=== PATIENT | female | born 1970 | race Caucasian/White ===

== ENCOUNTER 2017-01-07 22:14 | Emergency (ER) | payer MEDICAID, OTHER, SELFPAY ==
[~2017-01-07 22:14] MED LIST: /ADVA50050; /ADVA50050 IN; /ESCI20TA; /MOXI40TA; /MOXI40TA OR; /TIOT18INH; /ZOLP6ER OR; ACET65TA; ADVAIR; ALBUTEROL INH; ALBUTEROL INHL INH; ALLE25CA; AMBI10TA; AMBI10TA OR; AMBI5TAB; ATARAX OR; ATIV0.5T OR; BUPRPOW2; CELE20TA OR; COMBIVENT; EFFE150C; EFFE75CA75; HYDROCORTISONE0.5 % EX; IPRATROPIUM; KLON1TAB OR; LITH300T2 OR; MILKSUS; NEUR400C OR; NEUR600T; NICO21DI4; NICO21DI4 TD; PRED20TA; PREDNISONE PO; PROV90AE; RISPERDOL PO; SENN8.6T14; SUBOXONE PO; Suboxone; WELLBUTRIN PO; XANA0.5T OR; XOPE1.252
[2017-01-07] MEDS ORDERED: CLINDAMYCIN 150 MG CAP As Ordered ONE (22:41)
[2017-01-07] MEDS ORDERED: NORCO 5/325MG TABLET (BULK) As Ordered ONE (22:42)
--- NOTE | 2017-01-07 22:54 | EDDOCDS ---
Nurse's Notes [facility] Name: Melissa Patel Age: 46 yrs Sex: Female : 1970 Arrival Date: 01/07/2017 Time: 22:14 Bed 13 Private MD: NO PRIMARY PHYSICIAN, . Diagnosis: Disturbances in tooth formation-broken tooth Presentation: 01/07 22:18 Presenting complaint: Patient states: she broke a tooth 2 weeks ago. States pain has nn1 spread to right ear and right side of face. Patient has not seen a dentist. Adult Sepsis Screening: The patient does not have new or worsening altered mentation. Patient's respiratory rate is less than 22. Systolic blood pressure is greater than 100. Patient has a qSOFA score of 0- Negative Sepsis Screen. Suicide/Homicide risk assessment- the patient denies having any suicidal and/or homicidal ideations and does not present with any other emotional, behavioral or mental health complaints. Status: Patient is not a inbound customer service representative or dependent. Transition of care: patient was not received from another setting of care. 22:18 Acuity: ANDREI Level 4 nn1 22:18 Method Of Arrival: Walkin/Carried/Asstd nn1 Triage Assessment: 22:21 General: Appears in no apparent distress, comfortable. Pain: Location: tongue and lower nn1 right second bicuspid Pain currently is 6 out of 10 on a pain scale. HIV screening NA for this visit Offered previously. Neurological: Level of Consciousness is awake, alert, obeys commands, Oriented to person, place, time. EENT: Oral mucosa is moist. Poor dentition noted. Respiratory: Airway is patent Respiratory effort is even, unlabored, Respiratory pattern is regular, symmetrical. ON LINE CSR: 22:52 LMP N/A - cf2 Historical: - Allergies: No known drug Allergies; - Home Meds: 1. 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 No barriers to communication noted, The patient speaks fluent Uruguayan, Speaks appropriately for age. - Family history: Not pertinent. - : The pt / caregiver states he / she is not on anticoagulants. Home medication list is obtained from the patient. - Exposure Risk Screening:: None identified. Screenin:51 Screening information is obtained from the patient. Fall risk: No risks identified. cf2 Assistance ADL's: requires no assistance with activities of daily living. Abuse/DV Screen: The patient / caregiver reports he/she is: not in a situation that causes fear, pain or injury. Nutritional screening: No deficits noted. Advance Directives: Further advance directive information is declined. home support is adequate. Assessment: 22:51 Pain: Location: mouth. cf2 Vital Signs: 22:15 BP 153 / 85; Pulse 72; Resp 18 S; Temp 97.4(O); Pulse Ox 99% on R/A; Weight 72.57 kg gr2 (R); Height 5 ft. 5 in. (165.10 cm) (R); Pain 6/10; 22:15 Body Mass Index 26.63 (72.57 kg, 165.10 cm) gr2 Vitals: 22:15 Log In Time: January 07, 2017 at 22:15. gr2 ED Course: 22:15 Patient visited by Sushil Scherer. gr2 22:15 NO PRIMARY PHYSICIAN, . is Private Physician. gr2 22:15 Patient moved to Waiting gr2 22:16 Patient visited by Sushil Scherer. gr2 22:16 Patient moved to Pre RCE gr2 22:19 Triage Initiated nn1 22:30 Patient moved to 13 ttb 22:31 Will Choi FNP is PHCP. ke 22:31 Patient visited by Will Choi FNP. ke 22:31 Patient visited by Will Choi FNP. ke 22:36 Latasha Guillen RN is Primary Nurse. cf2 22:42 Your, Dentist is Referral Physician. ke 22:51 Latasha Guillen,GERMAINE is Primary Nurse. cf2 22:51 Patient visited by aLtasha Guillen RN. cf2 22:51 The patient / caregiver is instructed regarding the plan of care and ED course. Patient cf2 has correct armband on for positive identification. Placed in gown. Bed in low position. Call light in reach. Side rails up X 1. Side rails up X2. 22:51 No IV's were initiated during this patient's visit. No procedures done that require cf2 assistance. 22:53 Dilshad Allen MD is Attending Physician. cf2 Order Results: There are currently no results for this order. Outcome: 22:43 Discharge ordered by Provider. ke 22:51 Discharge Assessment: Patient awake, alert and oriented x 3. No cognitive and/or cf2 functional deficits noted. Patient verbalized understanding of disposition instructions. Patient awake and alert. Oriented to person, place and time. patient administered narcotics - yes. Pt provided with safe discharge. The following High Risk Discharge criteria are identified: None. Condition: good Condition: stable Condition: improved. No special radiology studies were completed. Property :Personal belongings accompany Pt. 22:53 Patient left the ED. cf2 Signatures: Will Choi, RELATIONSHIP MANAGER Jayashree Allen RN RN ttb Sushil Scherer 2 Liana LandersRN RN nn1 Latasha GuillenRN RN cf2 MTDD
--- NOTE | 2017-01-07 22:54 | EDDOCDS ---
Physician Documentation [facility] Name: Melissa Patel Age: 46 yrs Sex: Female : 1970 Arrival Date: 01/07/2017 Time: 22:14 Bed 13 Private MD: NO PRIMARY PHYSICIAN, . Disposition: 01/07/17 22:43 Discharged to Home/Self Care. Impression: Disturbances in tooth formation - broken tooth. - Condition is Stable. - Discharge Instructions: Dental Pain. - Prescriptions for Clindamycin HCl 300 mg Oral Capsule - take 1 capsule by ORAL route every 6 hours; 40 capsule. [place] 5- 325 mg Oral Tablet - take 1 tablet by ORAL route every 6 hours As needed MDD: 4 tabs; 20 tablet. - Medication Reconciliation, Local Pharmacy Hours form. - Follow up: Your, Dentist; When: As soon as possible; Reason: Further diagnostic work-up, Continuance of care. - Problem is an ongoing problem. - Symptoms are unchanged. Historical: - Allergies: No known drug Allergies; - Home Meds: 1. 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 No barriers to communication noted, The patient speaks fluent Romanian, Speaks appropriately for age. - Family history: Not pertinent. - : The pt / caregiver states he / she is not on anticoagulants. Home medication list is obtained from the patient. - Exposure Risk Screening:: None identified. JOB ANALYSIS MANAGER: 01/07 22:52 LMP N/A - cf2 Vital Signs: 22:15 BP 153 / 85; Pulse 72; Resp 18 S; Temp 97.4(O); Pulse Ox 99% on R/A; Weight 72.57 kg / gr2 159.99 lbs (R); Height 5 ft. 5 in. (165.10 cm) (R); Pain 6/10; 22:15 Body Mass Index 26.63 (72.57 kg, 165.10 cm) gr2 MDM: 22:38 Clindamycin 300 mg PO once ordered. ke 22:38 HYDROcodone-acetaminophen 4 pack- 5 mg-325 mg 1 packets PO Per package directions; ke Dispense with patient. 1 po q4h prn for pain ordered. Signatures: Will Choi, WOMENS HEALTH NURSE PRACTITIONER WOMENS HEALTH NURSE PRACTITIONER Liana Avalos,RN RN nn1 Latasha GuillenRN RN cf2 MTDD
--- NOTE | 2017-01-09 23:53 | EDDOCDS ---
Physician Documentation [facility] Name: Melissa Patel Age: 46 yrs Sex: Female : 1970 Arrival Date: 01/07/2017 Time: 22:14 Bed 13 Private MD: NO PRIMARY PHYSICIAN, . Disposition: 01/07/17 22:43 Discharged to Home/Self Care. Impression: Disturbances in tooth formation - broken tooth. - Condition is Stable. - Discharge Instructions: Dental Pain. - Prescriptions for Clindamycin HCl 300 mg Oral Capsule - take 1 capsule by ORAL route every 6 hours; 40 capsule. [place] 5- 325 mg Oral Tablet - take 1 tablet by ORAL route every 6 hours As needed MDD: 4 tabs; 20 tablet. - Medication Reconciliation, Local Pharmacy Hours form. - Follow up: Your, Dentist; When: As soon as possible; Reason: Further diagnostic work-up, Continuance of care. - Problem is an ongoing problem. - Symptoms are unchanged. Historical: - Allergies: No known drug Allergies; - Home Meds: 1. 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 No barriers to communication noted, The patient speaks fluent Kinyarwanda, Speaks appropriately for age. - Family history: Not pertinent. - : The pt / caregiver states he / she is not on anticoagulants. Home medication list is obtained from the patient. - Exposure Risk Screening:: None identified. IN FLIGHT TECHNICIAN: 01/07 22:52 LMP N/A - cf2 Vital Signs: 22:15 BP 153 / 85; Pulse 72; Resp 18 S; Temp 97.4(O); Pulse Ox 99% on R/A; Weight 72.57 kg / gr2 159.99 lbs (R); Height 5 ft. 5 in. (165.10 cm) (R); Pain 6/10; 22:15 Body Mass Index 26.63 (72.57 kg, 165.10 cm) gr2 MDM: 22:38 Clindamycin 300 mg PO once ordered. ke 22:38 HYDROcodone-acetaminophen 4 pack- 5 mg-325 mg 1 packets PO Per package directions; ke Dispense with patient. 1 po q4h prn for pain ordered. 23:02 [facility] Payment Agreement was scanned into [employer] and attached to record. [facility] : Financial registration complete. [facility] 01/08 10:11 T-Sheet-- Draft Copy was scanned into [employer] and attached to record. gb Signatures: Eloisa Mckeon, Reg Reg gb Will Choi, DISTRIBUTOR SALES CONSULTANT DISTRIBUTOR SALES CONSULTANT Liana Avalos RN RN nn1 Monica Whittington [facility] Latasha GuillenRN RN cf2 The chart was reviewed and I authenticate all verbal orders and agree with the evaluation and treatment provided.Attachments: 01/07 23:02 [facility] Payment Agreement [facility] 01/08 10:11 T-Sheet-- Draft Copy gb Chart Complete MTDD
--- NOTE | 2017-01-09 23:53 | EDDOCDS ---
Physician Documentation [facility] Name: Melissa Patel Age: 46 yrs Sex: Female : 1970 Arrival Date: 01/07/2017 Time: 22:14 Bed 13 Private MD: NO PRIMARY PHYSICIAN, . Disposition: 01/07/17 22:43 Discharged to Home/Self Care. Impression: Disturbances in tooth formation - broken tooth. - Condition is Stable. - Discharge Instructions: Dental Pain. - Prescriptions for Clindamycin HCl 300 mg Oral Capsule - take 1 capsule by ORAL route every 6 hours; 40 capsule. [place] 5- 325 mg Oral Tablet - take 1 tablet by ORAL route every 6 hours As needed MDD: 4 tabs; 20 tablet. - Medication Reconciliation, Local Pharmacy Hours form. - Follow up: Your, Dentist; When: As soon as possible; Reason: Further diagnostic work-up, Continuance of care. - Problem is an ongoing problem. - Symptoms are unchanged. Historical: - Allergies: No known drug Allergies; - Home Meds: 1. 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 No barriers to communication noted, The patient speaks fluent Kinyarwanda, Speaks appropriately for age. - Family history: Not pertinent. - : The pt / caregiver states he / she is not on anticoagulants. Home medication list is obtained from the patient. - Exposure Risk Screening:: None identified. DECK SUPERVISOR: 01/07 22:52 LMP N/A - cf2 Vital Signs: 22:15 BP 153 / 85; Pulse 72; Resp 18 S; Temp 97.4(O); Pulse Ox 99% on R/A; Weight 72.57 kg / gr2 159.99 lbs (R); Height 5 ft. 5 in. (165.10 cm) (R); Pain 6/10; 22:15 Body Mass Index 26.63 (72.57 kg, 165.10 cm) gr2 MDM: 22:38 Clindamycin 300 mg PO once ordered. ke 22:38 HYDROcodone-acetaminophen 4 pack- 5 mg-325 mg 1 packets PO Per package directions; ke Dispense with patient. 1 po q4h prn for pain ordered. 23:02 [facility] Payment Agreement was scanned into [employer] and attached to record. [facility] : Financial registration complete. [facility] 01/08 10:11 T-Sheet-- Draft Copy was scanned into [employer] and attached to record. gb Signatures: Eloisa Mckeon, Reg Reg gb Will Choi, POWERTRAIN CONTROL SYSTEMS ENGINEER POWERTRAIN CONTROL SYSTEMS ENGINEER Liana Avalos RN RN nn1 Monica Whittington [facility] Latasha GuillenRN RN cf2 The chart was reviewed and I authenticate all verbal orders and agree with the evaluation and treatment provided.Attachments: 01/07 23:02 [facility] Payment Agreement [facility] 01/08 10:11 T-Sheet-- Draft Copy gb Chart Complete MTDD
--- NOTE | 2017-01-09 23:53 | EDDOCDS ---
Nurse's Notes [facility] Name: Melissa Patel Age: 46 yrs Sex: Female : 1970 Arrival Date: 01/07/2017 Time: 22:14 Bed 13 Private MD: NO PRIMARY PHYSICIAN, . Diagnosis: Disturbances in tooth formation-broken tooth Presentation: 01/07 22:18 Presenting complaint: Patient states: she broke a tooth 2 weeks ago. States pain has nn1 spread to right ear and right side of face. Patient has not seen a dentist. Adult Sepsis Screening: The patient does not have new or worsening altered mentation. Patient's respiratory rate is less than 22. Systolic blood pressure is greater than 100. Patient has a qSOFA score of 0- Negative Sepsis Screen. Suicide/Homicide risk assessment- the patient denies having any suicidal and/or homicidal ideations and does not present with any other emotional, behavioral or mental health complaints. Status: Patient is not a servicenow administrator or dependent. Transition of care: patient was not received from another setting of care. 22:18 Acuity: ANDREI Level 4 nn1 22:18 Method Of Arrival: Walkin/Carried/Asstd nn1 Triage Assessment: 22:21 General: Appears in no apparent distress, comfortable. Pain: Location: tongue and lower nn1 right second bicuspid Pain currently is 6 out of 10 on a pain scale. HIV screening NA for this visit Offered previously. Neurological: Level of Consciousness is awake, alert, obeys commands, Oriented to person, place, time. EENT: Oral mucosa is moist. Poor dentition noted. Respiratory: Airway is patent Respiratory effort is even, unlabored, Respiratory pattern is regular, symmetrical. BUSINESS CONTROL SPECIALIST: 22:52 LMP N/A - cf2 Historical: - Allergies: No known drug Allergies; - Home Meds: 1. 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 No barriers to communication noted, The patient speaks fluent Japanese, Speaks appropriately for age. - Family history: Not pertinent. - : The pt / caregiver states he / she is not on anticoagulants. Home medication list is obtained from the patient. - Exposure Risk Screening:: None identified. Screenin:51 Screening information is obtained from the patient. Fall risk: No risks identified. cf2 Assistance ADL's: requires no assistance with activities of daily living. Abuse/DV Screen: The patient / caregiver reports he/she is: not in a situation that causes fear, pain or injury. Nutritional screening: No deficits noted. Advance Directives: Further advance directive information is declined. home support is adequate. Assessment: 22:51 Pain: Location: mouth. cf2 Vital Signs: 22:15 BP 153 / 85; Pulse 72; Resp 18 S; Temp 97.4(O); Pulse Ox 99% on R/A; Weight 72.57 kg gr2 (R); Height 5 ft. 5 in. (165.10 cm) (R); Pain 6/10; 22:15 Body Mass Index 26.63 (72.57 kg, 165.10 cm) gr2 Vitals: 22:15 Log In Time: January 07, 2017 at 22:15. gr2 ED Course: 22:15 Patient visited by Sushil Scherer. gr2 22:15 NO PRIMARY PHYSICIAN, . is Private Physician. gr2 22:15 Patient moved to Waiting gr2 22:16 Patient visited by Sushil Scherer. gr2 22:16 Patient moved to Pre RCE gr2 22:19 Triage Initiated nn1 22:30 Patient moved to 13 ttb 22:31 Will Choi FNP is PHCP. ke 22:31 Patient visited by Will Choi FNP. ke 22:31 Patient visited by Will Choi FNP. ke 22:36 Latasha Guillen RN is Primary Nurse. cf2 22:42 Your, Dentist is Referral Physician. ke 22:51 Latasha Guillen,GERMAINE is Primary Nurse. cf2 22:51 Patient visited by Latasha Guillen RN. cf2 22:51 The patient / caregiver is instructed regarding the plan of care and ED course. Patient cf2 has correct armband on for positive identification. Placed in gown. Bed in low position. Call light in reach. Side rails up X 1. Side rails up X2. 22:51 No IV's were initiated during this patient's visit. No procedures done that require cf2 assistance. 22:53 Dilshad Allen MD is Attending Physician. cf2 23:02 [facility] Payment Agreement was scanned into [email or web address] and attached to record. [facility] 01/08 10:11 T-Sheet-- Draft Copy was scanned into [email or web address] and attached to record. gb Order Results: There are currently no results for this order. Outcome: 01/07 22:43 Discharge ordered by Provider. ke 22:51 Discharge Assessment: Patient awake, alert and oriented x 3. No cognitive and/or cf2 functional deficits noted. Patient verbalized understanding of disposition instructions. Patient awake and alert. Oriented to person, place and time. patient administered narcotics - yes. Pt provided with safe discharge. The following High Risk Discharge criteria are identified: None. Condition: good Condition: stable Condition: improved. No special radiology studies were completed. Property :Personal belongings accompany Pt. 22:53 Patient left the ED. cf2 Signatures: Eloisa Mckeon, Reg Reg gb Will Choi, LEAD PASTOR LEAD PASTOR Jayashree Sullivan RN RN ttb Sushil Scherer gr2 Liana Landers,RN RN nn1 Monica Whittington b Latasha Guillen,RN RN cf2 Chart Complete POLO
== END 2017-01-07 22:53 | disposition home or self-care (01) ==
LOC: M ED 22:14
DX: K02.9 Dental caries, unspecified (principal); J45.909 Unspecified asthma, uncomplicated; B19.20 Unspecified viral hepatitis C without hepatic coma; F17.210 Nicotine dependence, cigarettes, uncomplicated

== ENCOUNTER 2017-06-15 17:25 | Emergency (ER) | payer MEDICAID, SELFPAY ==
[~2017-06-15] VITALS: Ht 165.1 cm; Wt 82.8 kg
[2017-06-15 17:25] VITALS: BP 133/74
[2017-06-15] MEDS ORDERED: CYCL5TAB PO (18:52)
[2017-06-15] MEDS ORDERED: NAPR500T PO (18:52)
[2017-06-15] MEDS ORDERED: CYCLOBENZAPRINE 10 MG TAB PO ONE (19:00)
[2017-06-15] MEDS ORDERED: NAPROXEN 250 MG TAB PO ONE (19:00)
[2017-06-15] MEDS ORDERED: CYCLOBENZAPRINE 5MG TABLET PO ONE (19:00)
--- NOTE | 2017-06-15 19:09 | ECGEPIP ---
Stationary ECG Study [facility] - ED Test Date: 2017-06-15 Pat Name: GERMÁN WRIGHT Department: Room: - Gender: F Press Secretary: ct : 1970 Requested By: JULIO CESAR Fritz PA-C Order Number: [id number] Reading MD: Whitney Lopez Measurements Intervals [place] Rate: 63 P: 80 NH: 143 QRS: 56 QRSD: 82 T: 63 QT: 425 QTc: 436 Interpretive Statements SINUS RHYTHM POSSIBLE RIGHT ATRIAL ENLARGEMENT POSSIBLE LEFT ATRIAL ENLARGEMENT DECREASED RATE/NH 12/23/11 Electronically Signed On 06-15-2017 19:09:15 EDT by Whitney Lopez
== END 2017-06-15 19:05 | disposition home or self-care (01) ==
LOC: M ED 17:25
DX: S46.812A Strain of other muscles, fascia and tendons at shoulder and upper arm level, left arm, initial encounter (principal); X58.XXXA Exposure to other specified factors, initial encounter; Y92.9 Unspecified place or not applicable; Y93.9 Activity, unspecified; Y99.8 Other external cause status; F41.9 Anxiety disorder, unspecified; F32.9 Major depressive disorder, single episode, unspecified; J45.909 Unspecified asthma, uncomplicated; F11.21 Opioid dependence, in remission

== ENCOUNTER 2017-06-23 23:47 | Emergency (ER) | payer MEDICAID, SELFPAY ==
[~2017-06-23] VITALS: Ht 165.1 cm; Wt 82.7 kg
[~2017-06-23 23:47] MED LIST changes: +CYCL5TAB PO; +NAPR500T PO
[2017-06-24] MEDS ORDERED: KETOROLAC 60 MG/2 ML VIAL (J1885) IM ONE (01:15)
[2017-06-24] MEDS ORDERED: KETOROLAC 30 MG/ML VIAL (J1885) As Ordered ONE (01:15)
--- NOTE | 2017-06-24 01:50 | REP ---
Clinical: Pain . Technique: Internal rotation, external rotation, and Y view. Findings: No acute fracture or dislocation. The acromioclavicular and glenohumeral joints are intact. No periarticular calcifications or degenerative changes are appreciated. Sub acromial space is normal. Surrounding soft tissues are unremarkable. Impression: Normal age-appropriate left shoulder radiographs. Signed by Juan Francisco Smith MD 06/24/2017 01:41 A
[2017-06-24] MEDS ORDERED: KETO10TAB PO (02:29)
[2017-06-24 02:55] VITALS: BP 120/78
== END 2017-06-24 03:01 | disposition home or self-care (01) ==
LOC: M ED 23:47
DX: M75.102 Unspecified rotator cuff tear or rupture of left shoulder, not specified as traumatic (principal); J45.909 Unspecified asthma, uncomplicated; F11.21 Opioid dependence, in remission; F17.200 Nicotine dependence, unspecified, uncomplicated
CPT/HCPCS: 73030; 96372; 99283; J1885

== ENCOUNTER 2017-12-08 18:15 | Emergency (ER) | payer OTHER, SELFPAY ==
[2017-12-08] MEDS: NS 1,000 ML IV (20:30)
[2017-12-08 20:40] LABS: KETONE, URINE AUTO RFX NEGATIVE (NEGATIVE); LEUKOCYTE ESTERASE UR AUTO RFX NEGATIVE (NEGATIVE); NITRITE, URINE AUTO RFX NEGATIVE (NEGATIVE); RBC, URINE AUTO RFX 0 /HPF (0-3); SQUAM EPITHELIAL CELL UR AURFX 0 /HPF (0-6); WBC, URINE AUTO RFX 0 /HPF (0-3)
[2017-12-08 21:40] LABS: BASO # 0.1 10^3/uL (0.0-0.2); BASO % 0.8 % (0.0-1.0); EOS # 0.2 10^3/uL (0.0-0.50); EOS % 2.2 % (0.0-3.0); HEMATOCRIT 44.2 % (36.0-47.0); IMMATURE GRANULOCYTE % 0.4 % (0-0); LYMPH # 1.9 10^3/uL (1.5-4.5); LYMPH % 26.1 % (24.0-44.0); MEAN CORPUSCULAR HEMOGLOBIN 29.7 pg (27.0-33.0); MEAN CORPUSCULAR HGB CONC 33.9 g/dl (32.0-36.5); MEAN CORPUSCULAR VOLUME 87.5 fl (80.0-96.0); MONO # 0.6 10^3/uL (0.0-0.8); MONO % 7.8 % (0.0-5.0); NEUTROPHILS # 4.6 10^3/uL (1.8-7.7); NEUTROPHILS % 62.7 % (36.0-66.0); PLATELET COUNT, AUTOMATED 151 10^3/uL (150-450); RED BLOOD COUNT 5.05 10^6/uL (4.00-5.40); WHITE BLOOD COUNT 7.3 10^3/uL (4.0-10.0)
[2017-12-08 21:55] LABS: INR 0.94; PROTHROMBIN TIME 12.7 SECONDS (12.4-14.5)
[2017-12-08] MEDS: KETOROLAC 30 MG/ML VIAL (J1885) IV (23:29)
[2017-12-08] MEDS: PANTOPRAZOLE 40MG INJ (PROTONIX) (C9113) IV (23:29)
[2017-12-08] MEDS: ONDANSETRON 4MG/2ML VIAL (J2405) IV (23:29)
[2017-12-09 00:12] LABS: ALBUMIN 3.6 GM/DL (3.2-5.2); ALKALINE PHOSPHATASE 58 U/L (45-117); ALT/SGPT 37 U/L (12-78); ANION GAP 8 MEQ/L (8-16); AST/SGOT 20 U/L (7-37); BILIRUBIN,DIRECT 0.2 MG/DL (0.0-0.2); BILIRUBIN,TOTAL 0.5 MG/DL (0.2-1.0); BLOOD UREA NITROGEN 9 MG/DL (7-18); CALCIUM LEVEL 8.4 MG/DL (8.5-10.1); CARBON DIOXIDE LEVEL 24 MEQ/L (21-32); CHLORIDE LEVEL 108 MEQ/L (98-107); CREATININE FOR GFR 0.52 MG/DL (0.55-1.02); GLOMERULAR FILTRATION RATE > 60.0 (>58); GLUCOSE, FASTING 82 MG/DL (70-105); LIPASE 94 U/L (73-393); POTASSIUM SERUM 3.8 MEQ/L (3.5-5.1); SODIUM LEVEL 140 MEQ/L (136-145); TOTAL PROTEIN 7.2 GM/DL (6.4-8.2)
[2017-12-09] MEDS ORDERED: ISOVUE-370 76% 100ML VIAL (Q9967) As Ordered (00:13)
== END 2017-12-09 02:09 | disposition home or self-care (01) ==
LOC: M ED 12-09 02:09
DX: K62.5 Hemorrhage of anus and rectum (principal); J44.9 Chronic obstructive pulmonary disease, unspecified; B19.9 Unspecified viral hepatitis without hepatic coma; F41.9 Anxiety disorder, unspecified; F33.9 Major depressive disorder, recurrent, unspecified; F17.210 Nicotine dependence, cigarettes, uncomplicated; F11.11 Opioid abuse, in remission; Z86.14 Personal history of Methicillin resistant Staphylococcus aureus infection; Z86.69 Personal history of other diseases of the nervous system and sense organs
CPT/HCPCS: C9113

== ENCOUNTER → 2018-03-18 | Outpatient (REF) | payer OTHER | LOC: M LAB REF 09:12 | DX: Z12.4 Encounter for screening for malignant neoplasm of cervix (principal); R87.610 Atypical squamous cells of undetermined significance on cytologic smear of cervix (ASC-US) | CPT/HCPCS: 88142 ==

== ENCOUNTER 2018-05-19 09:48 | Day surgery (SDC) | payer OTHER ==
[2018-05-19] MEDS: NS 1,000 ML IV (10:15)
[2018-05-19] MEDS ORDERED: PROPOFOL 200 MG/20 ML VIAL As Ordered (11:05)
== END 2018-05-19 11:37 | disposition home or self-care (01) ==
LOC: M OPP 09:48
DX: R93.3 Abnormal findings on diagnostic imaging of other parts of digestive tract (principal); K64.0 First degree hemorrhoids; K57.30 Diverticulosis of large intestine without perforation or abscess without bleeding; K62.5 Hemorrhage of anus and rectum; K52.9 Noninfective gastroenteritis and colitis, unspecified; Z95.0 Presence of cardiac pacemaker; B18.2 Chronic viral hepatitis C; F41.9 Anxiety disorder, unspecified; F32.9 Major depressive disorder, single episode, unspecified; Z86.69 Personal history of other diseases of the nervous system and sense organs; Z78.0 Asymptomatic menopausal state; J45.909 Unspecified asthma, uncomplicated; J44.9 Chronic obstructive pulmonary disease, unspecified; F19.21 Other psychoactive substance dependence, in remission; F12.10 Cannabis abuse, uncomplicated; F17.210 Nicotine dependence, cigarettes, uncomplicated; Z79.899 Other long term (current) drug therapy; Z80.3 Family history of malignant neoplasm of breast
CPT/HCPCS: 45378

== ENCOUNTER 2018-08-24 19:46 | Emergency (ER) | payer SELFPAY, OTHER ==
[2018-08-24 21:57] LABS: BASO # 0.1 10^3/uL (0.0-0.2); BASO % 0.9 % (0.0-1.0); EOS # 0.3 10^3/uL (0.0-0.50); EOS % 3.8 % (0.0-3.0); HEMATOCRIT 45.8 % (36.0-47.0); HEMOGLOBIN 15.4 g/dl (12.0-15.5); IMMATURE GRANULOCYTE % 0.4 % (0-3.0); LYMPH # 2.9 10^3/uL (1.5-4.5); LYMPH % 35.7 % (24.0-44.0); MEAN CORPUSCULAR HGB CONC 33.6 g/dl (32.0-36.5); MEAN CORPUSCULAR VOLUME 89.3 fl (80.0-96.0); MONO # 0.7 10^3/uL (0.0-0.8); MONO % 8.5 % (0.0-5.0); NEUTROPHILS # 4.1 10^3/uL (1.8-7.7); NEUTROPHILS % 50.7 % (36.0-66.0); PLATELET COUNT, AUTOMATED 172 10^3/uL (150-450); RED BLOOD COUNT 5.13 10^6/uL (4.00-5.40); WHITE BLOOD COUNT 8.2 10^3/uL (4.0-10.0)
[2018-08-24] MEDS: GASTROGRAFIN SOLUTION 30ML PO ×2 (22:09→22:35)
[2018-08-24 22:41] LABS: ALBUMIN 3.8 GM/DL (3.2-5.2); ALBUMIN/GLOBULIN RATIO 1.09 (1.00-1.93); ALKALINE PHOSPHATASE 57 U/L (45-117); ALT/SGPT 50 U/L (12-78); ANION GAP 10 MEQ/L (8-16); AST/SGOT 28 U/L (7-37); BILIRUBIN,DIRECT 0.1 MG/DL (0.0-0.2); BILIRUBIN,TOTAL 0.3 MG/DL (0.2-1.0); BLOOD UREA NITROGEN 9 MG/DL (7-18); CARBON DIOXIDE LEVEL 26 MEQ/L (21-32); CHLORIDE LEVEL 104 MEQ/L (98-107); CREATININE FOR GFR 0.66 MG/DL (0.55-1.30); GLOMERULAR FILTRATION RATE > 60.0 (>58); GLUCOSE, FASTING 81 MG/DL (70-100); LIPASE 174 U/L (73-393); POTASSIUM SERUM 3.9 MEQ/L (3.5-5.1); SODIUM LEVEL 140 MEQ/L (136-145); TOTAL PROTEIN 7.3 GM/DL (6.4-8.2)
[2018-08-24] MEDS ORDERED: ISOVUE-370 76% 100ML VIAL (Q9967) As Ordered (22:59)
== END 2018-08-25 00:41 | disposition home or self-care (01) ==
LOC: M ED 08-25 00:41
DX: K62.89 Other specified diseases of anus and rectum (principal); J45.909 Unspecified asthma, uncomplicated; F31.9 Bipolar disorder, unspecified; F41.9 Anxiety disorder, unspecified; F32.9 Major depressive disorder, single episode, unspecified; Z86.19 Personal history of other infectious and parasitic diseases; Z72.0 Tobacco use; Z79.899 Other long term (current) drug therapy
CPT/HCPCS: Q9963

== ENCOUNTER 2019-11-20 14:51 | Emergency (ER) | payer SELFPAY ==
[~2019-11-20] VITALS: Ht 167.6 cm; Wt 72.7 kg
[~2019-11-20 14:51] MED LIST changes: -/ADVA50050; -/ADVA50050 IN; -/ESCI20TA; -/MOXI40TA; -/MOXI40TA OR; -/TIOT18INH; +ADVA1AER2; +ADVA1AER2 IN; +ANUS2.5C2 PR; +AVEL1TAB2; +AVEL1TAB2 OR; +BREO1INH INH; +KETO10TAB PO; +LEXA1TAB2; +NAPR-837 PO; -NAPR500T PO; +SPIR1CAP; +ZOFR4TAB14 PO
[2019-11-20] MEDS ORDERED: CYCL5TAB PO (15:28)
[2019-11-20] MEDS ORDERED: IBUP-1022 PO (15:28)
[2019-11-20] MEDS ORDERED: IBUPROFEN 800 MG TAB PO ONE (15:30)
[2019-11-20] MEDS ORDERED: CYCLOBENZAPRINE 5MG TABLET PO ONE (15:30)
[2019-11-20 15:44] VITALS: BP 150/83
== END 2019-11-20 15:45 | disposition home or self-care (01) ==
LOC: M ED 14:51
DX: M54.41 Lumbago with sciatica, right side (principal); M54.42 Lumbago with sciatica, left side; J45.909 Unspecified asthma, uncomplicated

== ENCOUNTER 2020-01-07 14:06 | Emergency (ER) | payer OTHER, SELFPAY ==
[~2020-01-07] VITALS: Ht 165.1 cm; Wt 70.9 kg
[~2020-01-07 14:06] MED LIST changes: +IBUP-1022 PO
--- NOTE | 2020-01-07 14:59 | REP ---
Clinical: Trauma. Technique: Frontal view of the chest with multiple views of the left hemithorax. Findings: Frontal view of the chest demonstrates no acute cardiopulmonary process. Multiple views of the left hemithorax demonstrates no obvious acute rib fracture or pathology. Impression: Normal left rib series Electronically Signed by Juan Francisco Smith MD 01/07/2020 02:51 P
[2020-01-07] MEDS ORDERED: NORCO, ANEXSIA 5/325MG TABLET (HYDROcodone/ACETAMINOPHEN) PO ONE (15:45)
--- NOTE | 2020-01-07 16:25 | REP ---
Clinical: Trauma with left upper quadrant pain. Technique: Real time flores scale and color evaluation using curved array transducer. Findings: The spleen is normal in appearance and size without evidence for injury or pathology and measures 11.6 x 3.7 x 10.8 cm. Left kidney is normal in reniform shape and appearance without hydronephrosis measuring 11.4 x 4.6 x 4.6 cm. No ascites. Impression: Normal left upper quadrant ultrasound. Electronically Signed by Juan Francisco Smith MD 01/07/2020 04:16 P
[2020-01-07] MEDS ORDERED: NAPR-837 PO (16:37)
[2020-01-07] MEDS ORDERED: NORC1TAB7 PO (16:37)
[2020-01-07] MEDS ORDERED: VENTAER INH (16:37)
[2020-01-07 16:42] VITALS: BP 132/69
== END 2020-01-07 16:51 | disposition home or self-care (01) ==
LOC: M ED 14:06
DX: S20.212A Contusion of left front wall of thorax, initial encounter (principal); W01.0XXA Fall on same level from slipping, tripping and stumbling without subsequent striking against object, initial encounter; Y92.89 Other specified places as the place of occurrence of the external cause; J44.9 Chronic obstructive pulmonary disease, unspecified; J45.909 Unspecified asthma, uncomplicated; F41.9 Anxiety disorder, unspecified; Z79.899 Other long term (current) drug therapy

== ENCOUNTER 2020-05-24 13:32 | Emergency (ER) | payer OTHER ==
[~2020-05-24] VITALS: Ht 165.1 cm; Wt 71.0 kg
[~2020-05-24 13:32] MED LIST changes: +NORC1TAB7 PO; +VENTAER INH
[2020-05-24 14:33] LABS: BASO # 0.1 10^3/uL (0.0-0.2); BASO % 0.7 % (0.0-1.0); EOS # 0.3 10^3/uL (0.0-0.5); EOS % 3.7 % (0.0-3.0); HEMATOCRIT 47.8 % (36.0-47.0); HEMOGLOBIN 16.3 g/dl (12.0-15.5); LYMPH # 1.7 10^3/uL (1.5-5.0); LYMPH % 25.6 % (24.0-44.0); MEAN CORPUSCULAR HGB CONC 34.1 g/dl (32.0-36.5); MONO # 0.6 10^3/uL (0.0-0.8); MONO % 8.4 % (0.0-5.0); NEUTROPHILS # 4.2 10^3/uL (1.5-8.5); NEUTROPHILS % 61.3 % (36.0-66.0); PLATELET COUNT, AUTOMATED 167 10^3/uL (150-450); RED BLOOD COUNT 5.43 10^6/uL (4.00-5.40); WHITE BLOOD COUNT 6.8 10^3/uL (4.0-10.0)
[2020-05-24 15:01] LABS: ALBUMIN 3.7 GM/DL (3.2-5.2); BILIRUBIN,DIRECT 0.2 MG/DL (0.0-0.2); BILIRUBIN,TOTAL 0.4 MG/DL (0.2-1.0); TOTAL PROTEIN 7.5 GM/DL (6.4-8.2)
[2020-05-24] MEDS ORDERED: ONDA4TAB6 PO (15:07)
[2020-05-24] MEDS ORDERED: PEPC1TAB5 PO (15:07)
[2020-05-24] MEDS ORDERED: SIME180C PO (15:07)
[2020-05-24 15:49] VITALS: BP 138/88
--- NOTE | 2020-05-24 15:57 | REP ---
ABDOMEN SERIES: Two views. HISTORY: Abdomen pain. Bloating. Nausea. FINDINGS: There are granulomatous calcifications in the spleen. Bowel gas pattern is normal. No air fluid level is seen on upright radiograph. No evidence of free air. No mass organomegaly or pathologic calcification is seen. Psoas margins and flank stripes are intact. IMPRESSION: Normal bowel gas pattern. Electronically Signed by Karsten Roblero MD 05/24/2020 04:01 P
== END 2020-05-24 15:52 | disposition home or self-care (01) ==
LOC: M ED 13:32
DX: R10.9 Unspecified abdominal pain (principal); R11.0 Nausea; J44.9 Chronic obstructive pulmonary disease, unspecified; F17.200 Nicotine dependence, unspecified, uncomplicated; F41.9 Anxiety disorder, unspecified; F32.9 Major depressive disorder, single episode, unspecified

== ENCOUNTER → 2020-12-03 | Outpatient (CLI) | payer OTHER ==
[~2020-12-03] MED LIST changes: +ONDA4TAB6 PO; +PEPC1TAB5 PO; +SIME180C PO
== END ==
LOC: M LABSMTC 13:31
PROVIDERS: ATTEND Anesthesiology
DX: Z01.812 Encounter for preprocedural laboratory examination (principal); Z20.828 Contact with and (suspected) exposure to other viral communicable diseases

== ENCOUNTER 2020-12-07 12:08 | Day surgery (SDC) | payer OTHER ==
[~2020-12-07] VITALS: Ht 165.1 cm; Wt 69.8 kg
[~2020-12-07 12:08] MED LIST changes: +LIDOCAINE 2% 100MG/5ML SDV (FOR ANES.) As Ordered ONE; +NS 1,000 ML IV ONE; +propofoL 200 MG/20 ML VIAL As Ordered ONE
--- NOTE | 2020-12-07 14:27 | ROOR ---
Patient Name: Melissa Patel Procedure Date: 12/07/2020 1:59 PM Date of : 1970 Age: 50 Room: [facility] Gender: Female Note Status: Finalized Procedure: Total Colonoscopy to cecum + Bx. Indications: Lower abdominal pain, Rectal bleeding Providers: Gino Patel MD Referring MD: Jose Antonio QUIROS MD Requesting Provider: Medicines: Monitored Anesthesia Care Complications: No immediate complications. Procedure: Pre-Anesthesia Assessment: - The heart rate, respiratory rate, oxygen saturations, blood pressure, adequacy of pulmonary ventilation, and response to care were monitored throughout the procedure. The Colonoscope was introduced through the anus and advanced to the cecum, identified by appendiceal orifice and ileocecal valve. The colonoscopy was performed without difficulty. The patient tolerated the procedure well. The quality of the bowel preparation was excellent. Findings: The perianal and digital rectal examinations were normal. Non-bleeding internal hemorrhoids were found during retroflexion. The hemorrhoids were small and Grade I (internal hemorrhoids that do not prolapse). A localized area of mildly congested, erythematous and thickened folds of the mucosa was found from 0 to 15 cm proximal to the anus. Biopsies were taken with a cold forceps for histology. Multiple small and large-mouthed diverticula were found in the recto-sigmoid colon, sigmoid colon and descending colon. The exam was otherwise without abnormality on direct and retroflexion views. Impression: - Non-bleeding internal hemorrhoids. - Congested, erythematous and thickened folds of the mucosa from 0 to 15 cm proximal to the anus. Biopsied. - Diverticulosis in the recto-sigmoid colon, in the sigmoid colon and in the descending colon. - The examination was otherwise normal on direct and retroflexion views. - The exam was otherwise normal to the cecum. Recommendation: - Patient has a contact number available for emergencies. The signs and symptoms of potential delayed complications were discussed with the patient. Return to normal activities tomorrow. Written discharge instructions were provided to the patient. - High fiber diet. - Discharge patient to home. - Continue present medications. - Await pathology results. - Use [place]asa 1000 mg suppository 1 per rectum QHS. - Repeat colonoscopy in 10 years for screening purposes. - Return to referring physician. - The findings and recommendations were discussed with the patient. Procedure Code(s): --- Professional --- 57809, Colonoscopy, flexible; with biopsy, single or multiple Diagnosis Code(s): --- Professional --- K64.0, First degree hemorrhoids K63.89, Other specified diseases of intestine R10.30, Lower abdominal pain, unspecified K62.5, Hemorrhage of anus and rectum K57.30, Diverticulosis of large intestine without perforation or abscess without bleeding CPT copyright 2019 [employer]. All rights reserved. The codes documented in this report are preliminary and upon temperature inspector review may be revised to meet current compliance requirements. Gino Patel MD Gino Patel MD 12/07/2020 2:26:35 PM Electronically signed by Gino Patel MD Number of Addenda: 0 Note Initiated On: 12/07/2020 1:59 PM Estimated Blood Loss: Estimated blood loss: none.
[2020-12-07 14:40] VITALS: BP 132/96
== END 2020-12-07 14:49 | disposition home or self-care (01) ==
LOC: M OPP 12:08
PROVIDERS: ATTEND Internal Medicine Gastroenterology
DX: R10.30 Lower abdominal pain, unspecified (principal); K62.5 Hemorrhage of anus and rectum; D12.8 Benign neoplasm of rectum; K64.0 First degree hemorrhoids; K57.30 Diverticulosis of large intestine without perforation or abscess without bleeding; K63.89 Other specified diseases of intestine; K52.9 Noninfective gastroenteritis and colitis, unspecified; J45.909 Unspecified asthma, uncomplicated; F17.210 Nicotine dependence, cigarettes, uncomplicated; Z79.899 Other long term (current) drug therapy

== ENCOUNTER → 2022-12-11 | Outpatient (CLI) | payer OTHER ==
[~2022-12-11] MED LIST changes: -LIDOCAINE 2% 100MG/5ML SDV (FOR ANES.) As Ordered ONE; -NS 1,000 ML IV ONE; -SIME180C PO; +SIME180C25 PO; -propofoL 200 MG/20 ML VIAL As Ordered ONE
== END ==
LOC: M RAD 14:41
PROVIDERS: ATTEND Internal Medicine
DX: Z87.891 Personal history of nicotine dependence (principal); R06.02 Shortness of breath

== ENCOUNTER → 2023-09-23 | Outpatient (CLI) | payer OTHER ==
[2023-09-23 07:55] LABS: BASO # 0.1 10^3/uL (0.0-0.2); BASO % 1.1 % (0.0-1.0); EOS # 0.4 10^3/uL (0.0-0.5); EOS % 6.5 % (0.0-3.0); HEMATOCRIT 46.8 % (36.0-47.0); LYMPH # 2.1 10^3/uL (1.5-5.0); LYMPH % 31.5 % (24.0-44.0); MEAN CORPUSCULAR HEMOGLOBIN 29.9 pg (27.0-33.0); MEAN CORPUSCULAR HGB CONC 34.2 g/dl (32.0-36.5); MEAN CORPUSCULAR VOLUME 87.5 fl (80.0-96.0); MONO # 0.7 10^3/uL (0.0-0.8); MONO % 10.3 % (2.0-8.0); NEUTROPHILS # 3.3 10^3/uL (1.5-8.5); NEUTROPHILS % 50.1 % (36.0-66.0); PLATELET COUNT, AUTOMATED 159 10^3/uL (150-450); RED BLOOD COUNT 5.35 10^6/uL (4.00-5.40); WHITE BLOOD COUNT 6.6 10^3/uL (4.0-10.0)
[2023-09-23 08:19] LABS: ALBUMIN 3.9 G/DL (3.2-5.2); ALKALINE PHOSPHATASE 55 U/L (46-116); ALT/SGPT 15 U/L (7.0-40); AST/SGOT 14 U/L (<34); BILIRUBIN,TOTAL 0.4 MG/DL (0.3-1.2); BLOOD UREA NITROGEN 11 MG/DL (9-23); CARBON DIOXIDE LEVEL 25 MMOL/L (20-31); CHLORIDE LEVEL 107 MMOL/L (98-107); CREATININE FOR GFR 0.68 MG/DL (0.55-1.30); GLOMERULAR FILTRATION RATE > 60.0 (>51); GLUCOSE, FASTING 99 MG/DL (60-100); POTASSIUM SERUM 4.1 MMOL/L (3.5-5.1); SODIUM LEVEL 138 MMOL/L (136-145); TOTAL PROTEIN 7.2 G/DL (5.7-8.2)
[2023-09-24 13:08] LABS: HEPATITIS C QUANTITATION HCV Not Detected IU/mL (.)
== END ==
LOC: M RAD 07:08
PROVIDERS: ATTEND Internal Medicine Infectious Disease
DX: K74.69 Other cirrhosis of liver (principal)

== ENCOUNTER 2024-03-24 07:15 | Day surgery (SDC) | payer OTHER ==
[~2024-03-24] VITALS: Ht 165.1 cm; Wt 75.5 kg
[~2024-03-24 07:15] MED LIST changes: +ALBU8.5H INH; +BUPR-71 PO; +FLUT1BLS4 INH; +NICO14DI6 TOP
[2024-03-24] MEDS: NS 1,000 ML IV ONE (07:29)
[2024-03-24] MEDS ORDERED: propofoL 200 MG/20 ML VIAL As Ordered ONE (07:54)
[2024-03-24] MEDS ORDERED: fentaNYL 100 MCG/2 ML INJECTION As Ordered ONE (08:12)
[2024-03-24 09:05] VITALS: BP 154/98; O2SAT 98
== END 2024-03-24 09:13 | disposition home or self-care (01) ==
LOC: M OPP 07:15
PROVIDERS: ATTEND Internal Medicine Gastroenterology
DX: K57.32 Diverticulitis of large intestine without perforation or abscess without bleeding (principal); K62.1 Rectal polyp; K64.8 Other hemorrhoids; K64.4 Residual hemorrhoidal skin tags; K22.89 Other specified disease of esophagus; K29.70 Gastritis, unspecified, without bleeding; K75.9 Inflammatory liver disease, unspecified
CPT/HCPCS: 43239; 45385; 88305; J3010